=== PATIENT | female | born 1930 | race Caucasian/White ===

== ENCOUNTER 2017-02-21 18:21 | Emergency (ER) | payer MEDICARE, BC ==
[2017-02-21 18:31] VITALS: BP 158/68
--- NOTE | 2017-02-21 18:53 | UC ---
Lower Extremity/Ankle HPI - HPI Summary HPI Summary: Was dx with L 5th toe fx by Dr. Alberta Kong yesterday after x-ray at [facility]. Does not remember injury, but also reports some age-related memory loss. Is having trouble with pain management and walking. Tried truman-taping 4th and 5th toes without relief. Has cane at home that she doesn't normally use. - History of Current Complaint Chief Complaint: UCLowerExtremity Stated Complaint: TOE INJURY Time Seen by Provider: 02/21/17 18:33 Hx Obtained From: Patient ?: No Onset/Duration: Lasting Days Severity Initially: Mild Severity Currently: Moderate Aggravating Factor(s): Standing, Ambulation Alleviating Factor(s): Rest Able to Bear Weight: Yes - Allergies/Home Medications Allergies/Adverse Reactions: Allergies Allergy/AdvReac Type Severity Reaction Status Date / Time Sulfa Drugs Allergy Severe RASH - Verified 02/21/17 18:31 HANDS Amiodarone Allergy Unknown Verified 02/21/17 18:31 Reaction Details Amoxicillin Allergy Unknown Verified 02/21/17 18:31 Reaction Details Clopidogrel Allergy Unknown Verified 02/21/17 18:31 Reaction Details Fluoxetine Allergy Unknown Verified 02/21/17 18:31 Reaction Details Home Medications: Home Medications Nitrofurantoin Monohyd Macro [Macrobid] 100 mg PO DAILY 02/21/17 [History Confirmed 02/21/17] PMH/Surg Hx/FS Hx/Imm Hx Endocrine History Of: Reports: Thyroid Disease - SYNTHROID Denies: Diabetes Cardiovascular History Of: Reports: Atrial Fibrillation Denies: Cardiac Disorders, Hypertension Respiratory History Of: Denies: COPD, Asthma GI/ History Of: Denies: Ulcer Other History Of: Anticoagulant Therapy - Surgical History Surgical History: Yes Surgery Procedure, Year, and Place: TUBAL LIGATION, Gallbladder 2001. TONSILLECTOMY A CHILD - Social History Alcohol Use: None Substance Use Type: None Smoking Status (MU): Former Smoker Type: Cigarettes Have You Smoked in the Last Year: No When Did the Patient Quit Smoking/Using Tobacco: Age 50 - Immunization History Most Recent Influenza Vaccination: 2013 Most Recent Tetanus Shot: [place] U[place] Most Recent Pneumonia Vaccination: 2011 Review of Systems Constitutional: Negative Skin: Negative Eyes: Negative ENT: Negative Respiratory: Negative Cardiovascular: Negative Gastrointestinal: Negative Genitourinary: Negative Motor: Negative Neurovascular: Negative Musculoskeletal: Arthralgia - L 5th toe Neurological: Negative Psychological: Negative All Other Systems Reviewed And Are Negative: Yes Physical Exam Triage Information Reviewed: Yes Appearance: Well-Appearing, No Pain Distress, Well-Nourished Vital Signs: Initial Vital Signs Temp 98.7 F 02/21/17 18:27 Pulse 62 02/21/17 18:27 Resp 16 02/21/17 18:27 BP 158/68 02/21/17 18:27 Pulse Ox 98 02/21/17 18:27 Vital Signs Reviewed: Yes Eye Exam: Normal Eyes: Positive: Conjunctiva Clear ENT Exam: Normal ENT: Positive: Normal ENT inspection, Hearing grossly normal, Pharynx normal, TMs normal Neck exam: Normal Respiratory Exam: Normal Respiratory: Positive: Chest non-tender, Lungs clear, Normal breath sounds, No respiratory distress, No accessory muscle use Musculoskeletal: Positive: ROM Limited @ - tender, pain in L 5th toe Neurological Exam: Normal Psychological Exam: Normal Skin Exam: Normal Lower Extremity Course/Dx - Differential Dx/Diagnosis Provider Diagnoses: L 5th toe fracture. L 5th toe pain Discharge - Discharge Plan Condition: Stable Disposition: HOME Prescriptions: Naproxen Sodium [Naproxen Sodium 275 MG TAB] 275 mg PO BID #14 tab Patient Education Materials: Toe Fracture (ED) Referrals: Alberta Kong MD [Primary Care Provider] - 2 Weeks Additional Instructions: Try using the special shoe and a cane. You can continue to wrap your foot if it helps your pain.
== END 2017-02-21 19:01 | disposition home or self-care (01) ==
LOC: UCEAST 18:21
DX: S92.912A Unspecified fracture of left toe(s), initial encounter for closed fracture (principal); M79.675 Pain in left toe(s); X58.XXXA Exposure to other specified factors, initial encounter; E07.9 Disorder of thyroid, unspecified; R41.3 Other amnesia; Z88.3 Allergy status to other anti-infective agents; Z88.2 Allergy status to sulfonamides; Z87.891 Personal history of nicotine dependence
CPT/HCPCS: 99213; G0463

== ENCOUNTER 2017-04-14 09:32 | Emergency (ER) | payer BC, MEDICARE ==
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
[2017-04-14 12:08] VITALS: BP 130/70
== END 2017-04-14 12:25 | disposition home or self-care (01) ==
LOC: UCEAST 09:32
DX: I48.91 Unspecified atrial fibrillation (principal); Z79.01 Long term (current) use of anticoagulants; R07.89 Other chest pain
CPT/HCPCS: 99212; G0463

== ENCOUNTER 2017-09-15 00:23 | Emergency (ER) | payer MEDICARE, BC ==
[2017-09-15 01:23] LABS: ABS Basophils 0 10^3/ul (0-0.2); ABS Eosinophils 0.1 10^3/ul (0-0.6); ABS Lymphocytes 2.8 10^3/ul (1.0-4.8); ABS Monocytes 0.6 10^3/ul (0-0.8); ABS Neutrophils 3.3 10^3/ul (1.5-7.7); ABS Nucleated RBC 0.01 10^3/ul; Eosinophil % 1.6 % (0-6); Hematocrit 41 % (35-47); Hemoglobin 13.1 g/dl (12.0-16.0); Lymphocyte % 40.9 % (25-47); Mean Corpuscular HGB Conc 32 g/dl (31-36); Mean Corpuscular Hemoglobin 28 pg (27-31); Mean Corpuscular Volume 86 fL (80-97); Mean Platelet Volume 8 um3 (7.4-10.4); Nucleated Red Blood Cells % 0.1; Platelet Count 287 10^3/ul (150-450); Red Blood Count 4.71 10^6/ul (4.0-5.4); Red Cell Distribution Width 14 % (10.5-15); White Blood Count 6.8 10^3/ul (3.5-10.8)
[2017-09-15 01:32] LABS: INR 0.95 (0.77-1.02)
[2017-09-15 01:39] LABS: EGFR Non-African American 55.8 (>60)
[2017-09-15 02:31] VITALS: BP 120/63
--- NOTE | 2017-09-15 02:54 | ED ---
Riley Trinidad Angela, scribed for Jose Manuel Franco on 09/15/17 at 0055 . Palpitations / Dysrhythmia - HPI Summary HPI Summary: This pt is a 86 y/o [facility] for a couple of hours now. She describes her palpitations as increased heart rate. Pt reports she has a history of atrial fibrillation (approx. 20 years) but notes that these palpitations are new for her. She denies chest pain, SOB, abd pain. Per , pt had a cardioversion in [id number]. Pt's PCP is Dr. Kong. She does not see a salesperson parts regularly. Pt denies PMHx of [place]. - History of Current Complaint Chief Complaint: EDDysrhythmPalp Time Seen by Provider: 09/15/17 00:40 Hx Obtained From: Patient Onset/Duration: Lasting Hours, Still Present Timing: Constant Character: Fast Associated Signs & Symptoms: Negative - Allergy/Home Medications Allergies/Adverse Reactions: Allergies Allergy/AdvReac Type Severity Reaction Status Date / Time Sulfa Drugs Allergy Severe RASH - Verified 09/15/17 00:35 HANDS Amiodarone Allergy Unknown Verified 09/15/17 00:35 Reaction Details Amoxicillin Allergy Unknown Verified 09/15/17 00:35 Reaction Details Clopidogrel Allergy Unknown Verified 09/15/17 00:35 Reaction Details Fluoxetine Allergy Unknown Verified 09/15/17 00:35 Reaction Details PMH/Surg Hx/FS Hx/Imm Hx Endocrine/Hematology History: Reports: Hx Anticoagulant Therapy, Hx Thyroid Disease - SYNTHROID Denies: Hx Diabetes, Other Endocrine/Hematological Disorders Cardiovascular History: Reports: Hx Atrial Fibrillation, Other Cardiovascular Problems/Disorders - HX AFIB CARDIOVERSION 2001 Denies: Hx Hypertension Respiratory History: Denies: Hx Asthma, Hx Chronic Obstructive Pulmonary Disease (COPD) GI History: Denies: Hx Ulcer Musculoskeletal History: Reports: Hx Arthritis - BILAL KNEES, Hx Rheumatoid Arthritis Denies: Hx Osteoporosis Sensory History: Reports: Hx Contacts or Glasses - GLASSES Denies: Hx Cataracts - removed, Hx Hearing Aid Opthamlomology History: Reports: Hx Contacts or Glasses - GLASSES Denies: Hx Cataracts - removed Neurological History: Reports: Other Neuro Impairments/Disorders - HX OF NEUROPATHY BILAT HANDS AND FEET - Cancer History Hx Chemotherapy: No - Surgical History Surgery Procedure, Year, and Place: TUBAL LIGATION, Gallbladder 2002. TONSILLECTOMY A CHILD Hx Anesthesia Reactions: No Infectious Disease History: No Infectious Disease History: Denies: Hx Clostridium Difficile, Hx Hepatitis, Hx Human Immunodeficiency Virus (HIV), Hx of Known/Suspected MRSA, Hx Shingles, Hx Tuberculosis, Hx Known/ Suspected VRE, Hx Known/Suspected VRSA, History Other Infectious Disease, Traveled Outside the [place] in Last 30 Days - Family History Known Family History: Positive: Other - Father: prostate CA. Sister: breast CA. Mother: dementia Negative: Cardiac Disease, Hypertension, Diabetes - Social History Alcohol Use: None Substance Use Type: Reports: None Smoking Status (MU): Former Smoker Type: Cigarettes Have You Smoked in the Last Year: No Review of Systems Negative: Fever, Chills Positive: Palpitations. Negative: Chest Pain Negative: Shortness Of Breath Negative: Abdominal Pain All Other Systems Reviewed And Are Negative: Yes Physical Exam - Summary Physical Exam Summary: Appearance: Well appearing, no pain distress Skin: warm, dry, reflects adequate perfusion Head/face: normal Eyes: EOMI, GAVIN ENT: normal Neck: supple, nontender Respiratory: CTA, breath sounds present Cardiovascular: Irregularly irregular heart beat, pulses symmetrical Abdomen: nontender, soft Bowel: present Musculoskeletal: normal, strength/ROM intact Neuro: normal, sensory motor intact, A&Ox3 Triage Information Reviewed: Yes Vital Signs On Initial Exam: Initial Vitals Temp Pulse Resp BP Pulse Ox 96.9 F 92 16 131/70 95 09/15/17 00:25 09/15/17 00:25 09/15/17 00:25 09/15/17 00:25 09/15/17 00:25 Vital Signs Reviewed: Yes Diagnostics - Vital Signs Vital Signs Temp Pulse Resp BP Pulse Ox 09/15/17 00:25 96.9 F 92 16 131/70 95 - Laboratory Result Diagrams: 09/15/17 01:10 09/15/17 01:10 Lab Statement: Any lab studies that have been ordered have been reviewed, and results considered in the medical decision making process. - Radiology Chest XR Xray Interpretation: No Acute Changes - negative chest XR. Radiology Interpretation Completed By: ED Physician - EKG 00:37 Cardiac Rate: NL EKG Rhythm: Atrial Fibrillation - at 81 bpm 02:11 Cardiac Rate: NL EKG Rhythm: Atrial Flutter - /atrial fibrillation at 61 bpm Re-Evaluation - Re-Evaluation First Eval Re-Evaluation Time: 02:19 Comment: Pt declines anticoagulants. She would like to talk to her PCP. Course/Dx - Course Course Of Treatment: Pt is a 86 y/o female, with history of afib, who presents with palpitations for a couple of hours now. Palpitations are characterized as fast heart rate. Bloodwork, EKG, and chest XR were obtained. Chest XR is negative. I discussed with the hospitalist, Dr. Butts, who reports there is no indication to admit the pt and to discharge the pt. I also discussed with the pt , who declines anticoagulants and would like to speak to her PCP. Therfore, pt will be discharged to home. - Diagnoses Provider Diagnoses: Atrial fibrillation, Palpitations - Physician Notifications Discussed Care Of Patient With: Alysha Butts Time Discussed With Above Provider: 01:59 Instructed by Provider To: Other - I discussed pt care with Dr. Butts, hospitalist, and reports there is no indication to admit the pt and recommends discharging the pt. Discharge - Discharge Plan Condition: Stable Disposition: HOME Patient Education Materials: A-fib (Atrial Fibrillation) (ED), Palpitations (ED ) Referrals: Alberta Kong MD [Primary Care Provider] - Additional Instructions: Please follow up with your primary care provider in 3 days. RETURN TO THE ED FOR ANY WORSENING SYMPTOMS in 48 HOURS. The documentation as recorded by the Riley rogers Angela accurately reflects the service I personally performed and the decisions made by me, Jose Manuel Franco.
--- NOTE | 2017-09-15 08:13 | RAD ---
Indication: Atrial fibrillation. Palpitations. Comparison: April 14, 2017 Technique: Upright AP 0115 hours Report: Elevated lung volumes and both diffuse mild prominence of the interstitial markings and patchy rarefaction of the mid to upper lung zone interstitial markings. No focal pulmonary lesion, compelling alveolar consolidation, pleural effusion, pneumothorax. The heart, pulmonary vasculature, and mediastinal contours are unremarkable. IMPRESSION: Stigmata of obstructive lung disease. No acute pulmonary or cardiac process evident.
== END 2017-09-15 02:31 | disposition home or self-care (01) ==
LOC: ED 00:23
DX: R10.9 Unspecified abdominal pain (principal); K63.89 Other specified diseases of intestine
CPT/HCPCS: 36415; 71010; 80053; 83735; 83880; 84443; 84484; 85025; 85610; 85730; 93005; 96374; 96375; 99283

== ENCOUNTER 2017-10-22 17:57 | Emergency (ER) | payer MEDICARE, BC ==
[2017-10-22 19:20] LABS: ABS Basophils 0 10^3/ul (0-0.2); ABS Eosinophils 0 10^3/ul (0-0.6); ABS Lymphocytes 1.3 10^3/ul (1.0-4.8); ABS Monocytes 0.3 10^3/ul (0-0.8); ABS Neutrophils 4.5 10^3/ul (1.5-7.7); ABS Nucleated RBC 0 10^3/ul; Eosinophil % 0.8 % (0-6); Hematocrit 41 % (35-47); Hemoglobin 13.5 g/dl (12.0-16.0); Lymphocyte % 20.4 % (25-47); Mean Corpuscular HGB Conc 33 g/dl (31-36); Mean Corpuscular Hemoglobin 28 pg (27-31); Mean Corpuscular Volume 85 fL (80-97); Mean Platelet Volume 8 um3 (7.4-10.4); Nucleated Red Blood Cells % 0.1; Platelet Count 239 10^3/ul (150-450); Red Blood Count 4.77 10^6/ul (4.0-5.4); Red Cell Distribution Width 14 % (10.5-15); White Blood Count 6.2 10^3/ul (3.5-10.8)
[2017-10-22 19:32] LABS: INR 0.98 (0.77-1.02)
--- NOTE | 2017-10-22 19:42 | RAD ---
HISTORY: Syncope COMPARISONS: September 15, 2017 VIEWS: 1: frontal portable view of the chest at 7:22 PM. The lung apices are partially cutoff FINDINGS: LINES AND TUBES: None. CARDIOMEDIASTINAL SILHOUETTE: The cardiomediastinal silhouette is normal for portable technique. PLEURA: The costophrenic angles are sharp. No pleural abnormalities are noted. LUNG PARENCHYMA: There is hyperinflation. ABDOMEN: The upper abdomen is clear. There is no subphrenic gas. BONES AND SOFT TISSUES: Degenerative changes are noted along the spine. IMPRESSION: LIMITED STUDY. COPD. NO ACTIVE CARDIOPULMONARY DISEASE.
[2017-10-22 20:21] LABS: EGFR Non-African American 60.9 (>60)
[2017-10-22] MEDS ORDERED: Ondansetron ODT TAB* 4 MG PO ONE (21:20)
[2017-10-22 21:42] VITALS: BP 151/59
--- NOTE | 2017-10-23 11:12 | ED ---
Dustin Trinidad Julia, scribed for Luis La MD on 10/22/17 at 1828 . Syncope/Near Syncope - HPI Summary HPI Summary: This patient is a 86 year old F BIBA to [facility] with a chief complaint of sudden weakness and lightheadedness prior to near syncope while walking. Patient states she got up after fall and walked a quarter of a block before calling an ambulance. Patient reports she is very hungry because she has not eaten since breakfast. She states she was hungry when she fell. Patient reports nausea. Patient denies LOC, pain, injury, bowel or urinary symptoms. Patient was given 4mg of Zofran at 17:55 by EMS. Patient was seen by here PCP, Dr. Kong, about a week ago. - History Of Current Complaint Chief Complaint: EDSyncope Time Seen by Provider: 10/22/17 18:11 Hx Obtained From: Patient Onset/Duration: Sudden Onset Timing: Seconds Context: Witnessed Activity At Onset: Other - walking Associated Head Trauma: No Associated Signs And Symptoms: Lightheadedness, Weakness - Allergies/Home Medications Allergies/Adverse Reactions: Allergies Allergy/AdvReac Type Severity Reaction Status Date / Time Sulfa Drugs Allergy Severe RASH - Verified 09/15/17 00:35 HANDS Amiodarone Allergy Unknown Verified 09/15/17 00:35 Reaction Details Amoxicillin Allergy Unknown Verified 09/15/17 00:35 Reaction Details Clopidogrel Allergy Unknown Verified 09/15/17 00:35 Reaction Details Fluoxetine Allergy Unknown Verified 09/15/17 00:35 Reaction Details PMH/Surg Hx/FS Hx/Imm Hx Endocrine/Hematology History: Reports: Hx Anticoagulant Therapy, Hx Thyroid Disease - SYNTHROID Denies: Hx Diabetes, Other Endocrine/Hematological Disorders Cardiovascular History: Reports: Hx Atrial Fibrillation, Other Cardiovascular Problems/Disorders - HX AFIB CARDIOVERSION 2001 Denies: Hx Hypertension Respiratory History: Denies: Hx Asthma, Hx Chronic Obstructive Pulmonary Disease (COPD) GI History: Denies: Hx Ulcer Musculoskeletal History: Reports: Hx Arthritis - BILAL KNEES, Hx Rheumatoid Arthritis Denies: Hx Osteoporosis Sensory History: Reports: Hx Contacts or Glasses - GLASSES Denies: Hx Cataracts - removed, Hx Hearing Aid Opthamlomology History: Reports: Hx Contacts or Glasses - GLASSES Denies: Hx Cataracts - removed Neurological History: Reports: Other Neuro Impairments/Disorders - HX OF NEUROPATHY BILAT HANDS AND FEET - Cancer History Hx Chemotherapy: No - Surgical History Surgery Procedure, Year, and Place: TUBAL LIGATION, Gallbladder 2001. TONSILLECTOMY A CHILD Hx Anesthesia Reactions: No Infectious Disease History: No Infectious Disease History: Reports: Traveled Outside the [place] in Last 30 Days - [place] Denies: Hx Clostridium Difficile, Hx Hepatitis, Hx Human Immunodeficiency Virus (HIV), Hx of Known/Suspected MRSA, Hx Shingles, Hx Tuberculosis, Hx Known/ Suspected VRE, Hx Known/Suspected VRSA, History Other Infectious Disease - Family History Known Family History: Positive: Other - Father: prostate CA. Sister: breast CA. Mother: dementia Negative: Cardiac Disease, Hypertension, Diabetes - Social History Alcohol Use: None Substance Use Type: Reports: None Smoking Status (MU): Former Smoker Type: Cigarettes Have You Smoked in the Last Year: No Review of Systems Constitutional: Negative - pain Gastrointestinal: Negative - bowel changes Positive: Nausea, Other - hunger Positive: no symptoms reported Neurological: Other - lightheaded Positive: Weakness All Other Systems Reviewed And Are Negative: Yes Physical Exam - Summary Physical Exam Summary: Appearance: The patient is well-nourished in no acute distress and in no acute pain. Skin: The skin is warm and dry and skin color reflects adequate perfusion. HEENT: The head is normocephalic and atraumatic. The pupils are equal and reactive. The conjunctivae are clear and without drainage. Nares are patent and without drainage. Mouth reveals moist mucous membranes and the throat is without erythema and exudate. The external ears are intact. The ear canals are patent and without drainage. The tympanic membranes are intact. Neck: the neck is supple with full range of motion and non-tender. There are no carotid bruits. There is no neck vein distension. Respiratory: Chest is non-tender. Lungs are clear to auscultation and breath sounds are symmetrical and equal. Cardiovascular: Heart is regular rate and rhythm. There is no murmur or rub auscultated. There is no peripheral edema and pulses are symmetrical and equal. Abdomen: The abdomen is soft and non-tender. There are normal bowel sounds heard in all four quadrants and there is no organomegaly palpated. Musculoskeletal: There is no back tenderness noted. Extremities are non-tender with full range of motion. There is good capillary refill. There is no peripheral edema or calf tenderness elicited. Neurological: Patient is alert and oriented to person, place and time. The patient has symmetrical motor strength in all four extremities. Cranial nerves are grossly intact. Deep tendon reflexes are symmetrical and equal in all four extremities. Psychiatric: The patient has an appropriate affect and does not exhibit any anxiety or depression. Triage Information Reviewed: Yes Vital Signs On Initial Exam: Initial Vitals Temp Pulse Resp BP Pulse Ox 97.9 F 58 16 142/65 98 10/22/17 18:02 10/22/17 18:02 10/22/17 18:02 10/22/17 18:02 10/22/17 18:02 Vital Signs Reviewed: Yes Diagnostics - Vital Signs Vital Signs Temp Pulse Resp BP Pulse Ox 10/22/17 18:02 97.9 F 58 16 142/65 98 - Laboratory Lab Results: Lab Results 10/22/17 10/22/17 10/22/17 Range/Units 17:04 17:04 17:04 WBC 6.2 (3.5-10.8) 10^3/ul RBC 4.77 (4.0-5.4) 10^6/ul Hgb 13.5 (12.0-16.0) g/dl Hct 41 (35-47) % MCV 85 (80-97) fL MCH 28 (27-31) pg MCHC 33 (31-36) g/dl RDW 14 (10.5-15) % Plt Count 239 (150-450) 10^3/ul MPV 8 (7.4-10.4) um3 Neut % (Auto) 72.4 (38-83) % Lymph % (Auto) 20.4 L (25-47) % [place] % (Auto) 5.6 (1-9) % Eos % (Auto) 0.8 (0-6) % Baso % (Auto) 0.8 (0-2) % Absolute Neuts (auto) 4.5 (1.5-7.7) 10^3/ul Absolute Lymphs (auto) 1.3 (1.0-4.8) 10^3/ul Absolute Monos (auto) 0.3 (0-0.8) 10^3/ul Absolute Eos (auto) 0 (0-0.6) 10^3/ul Absolute Basos (auto) 0 (0-0.2) 10^3/ul Absolute Nucleated RBC 0 10^3/ul Nucleated RBC % 0.1 INR (Anticoag Therapy) 0.98 (0.77-1.02) Sodium 138 (133-145) mmol/L Potassium 4.1 (3.5-5.0) mmol/L Chloride 103 (101-111) mmol/L Carbon Dioxide 26 (22-32) mmol/L Anion Gap 9 (2-11) mmol/L BUN 14 (6-24) mg/dL Creatinine 0.88 (0.51-0.95) mg/dL Est GFR ( Amer) 78.4 (>60) Est GFR (Non-Af Amer) 60.9 (>60) BUN/Creatinine Ratio 15.9 (8-20) Glucose 102 H (70-100) mg/dL Lactic Acid (0.5-2.0) mmol/L Calcium 9.4 (8.6-10.3) mg/dL Magnesium 2.1 (1.9-2.7) mg/dL Total Bilirubin 0.40 (0.2-1.0) mg/dL AST 12 L (13-39) U/L ALT 7 (7-52) U/L Alkaline Phosphatase 48 (34-104) U/L Troponin I 0.00 (<0.04) ng/mL Total Protein 6.2 L (6.4-8.9) g/dL Albumin 3.9 (3.2-5.2) g/dL Globulin 2.3 (2-4) g/dL Albumin/Globulin Ratio 1.7 (1-3) TSH 2.29 (0.34-5.60) mcIU/mL 10/22/17 Range/Units 20:54 WBC (3.5-10.8) 10^3/ul RBC (4.0-5.4) 10^6/ul Hgb (12.0-16.0) g/dl Hct (35-47) % MCV (80-97) fL MCH (27-31) pg MCHC (31-36) g/dl RDW (10.5-15) % Plt Count (150-450) 10^3/ul MPV (7.4-10.4) um3 Neut % (Auto) (38-83) % Lymph % (Auto) (25-47) % [place] % (Auto) (1-9) % Eos % (Auto) (0-6) % Baso % (Auto) (0-2) % Absolute Neuts (auto) (1.5-7.7) 10^3/ul Absolute Lymphs (auto) (1.0-4.8) 10^3/ul Absolute Monos (auto) (0-0.8) 10^3/ul Absolute Eos (auto) (0-0.6) 10^3/ul Absolute Basos (auto) (0-0.2) 10^3/ul Absolute Nucleated RBC 10^3/ul Nucleated RBC % INR (Anticoag Therapy) (0.77-1.02) Sodium (133-145) mmol/L Potassium (3.5-5.0) mmol/L Chloride (101-111) mmol/L Carbon Dioxide (22-32) mmol/L Anion Gap (2-11) mmol/L BUN (6-24) mg/dL Creatinine (0.51-0.95) mg/dL Est GFR ( Amer) (>60) Est GFR (Non-Af Amer) (>60) BUN/Creatinine Ratio (8-20) Glucose (70-100) mg/dL Lactic Acid 1.3 (0.5-2.0) mmol/L Calcium (8.6-10.3) mg/dL Magnesium (1.9-2.7) mg/dL Total Bilirubin (0.2-1.0) mg/dL AST (13-39) U/L ALT (7-52) U/L Alkaline Phosphatase (34-104) U/L Troponin I (<0.04) ng/mL Total Protein (6.4-8.9) g/dL Albumin (3.2-5.2) g/dL Globulin (2-4) g/dL Albumin/Globulin Ratio (1-3) TSH (0.34-5.60) mcIU/mL Result Diagrams: 10/22/17 17:04 10/22/17 17:04 Lab Statement: Any lab studies that have been ordered have been reviewed, and results considered in the medical decision making process. - Radiology CXR Radiology Interpretation Completed By: Radiologist - LIMITED STUDY. COPD. NO ACTIVE CARDIOPULMONARY DISEASE. ED Physician has reviewed this report. - EKG 18:20 Cardiac Rate: NL EKG Rhythm: Sinus Rhythm - at 56 BPM EKG Interpretation: nml EKG 19:56 Cardiac Rate: NL EKG Rhythm: Sinus Rhythm - at 60 BPM EKG Interpretation: nml EKG Course/Dx Course Of Treatment: Ms. Roper has not felt well in about a week. She has been nauseated and not eating well. She saw her PMD who thought she might be getting a virus. This morning she ate breakfast but then didn't eat lunch secondary to nausea. She was planning on eating when she got back from her walk and was quite hungry during the walk. She was almost back when she suddenly felt very weak and collapsed onto the ground without getting hurt. She got up immediately and walked the partial block back to the house. She C/O only about being hungry in the ED. She ate well here and her labs and monitoring were unrevealing as to the source of either her weakness or nausea. I recommended a scriipt for zofran and close F/U with her PMD. - Diagnoses Provider Diagnoses: Nausea, Near syncope Discharge - Discharge Plan Condition: Stable Disposition: HOME Prescriptions: Ondansetron ODT TAB* [Zofran Odt TAB*] 4 mg PO Q6H PRN #20 tab.odt PRN Reason: Nausea/Vomiting Patient Education Materials: Acute Nausea and Vomiting (ED), Near Syncope (ED) Referrals: Alberta Kong MD [Primary Care Provider] - Additional Instructions: Patient should follow up with Dr. Kong this week. Patient is prescribed with Zofran. RETURN TO THE EMERGENCY DEPARTMENT FOR CHANGING OR WORSENING SYMPTOMS. The documentation as recorded by the Dustin rogers Julia accurately reflects the service I personally performed and the decisions made by me, Luis La MD.
== END 2017-10-22 22:07 | disposition home or self-care (01) ==
LOC: ED 17:57
DX: R55 Syncope and collapse (principal); R11.0 Nausea; J44.9 Chronic obstructive pulmonary disease, unspecified; Z88.2 Allergy status to sulfonamides; Z88.8 Allergy status to other drugs, medicaments and biological substances; Z88.3 Allergy status to other anti-infective agents; Z87.891 Personal history of nicotine dependence
CPT/HCPCS: 36415; 71045; 80053; 82150; 83605; 83690; 83735; 84443; 84484; 85025; 85610; 86140; 93005; 99284; A9270-GY

== ENCOUNTER 2018-04-10 10:21 | Emergency (ER) | payer MEDICARE, BC ==
[2018-04-10 10:33] VITALS: BP 123/52
--- NOTE | 2018-04-10 10:46 | UC ---
Truncal Trauma HPI - HPI Summary HPI Summary: 87 yo female presents with right rib pain s/p fall 1 week ago. She tells me that [place] the [place] and stumbled getting into the seat - hit her right ribs on the arm rest. Has had pain in the area since. Has been taking tylenol for pain. Denies fever, chills, coughing, SOB, or chest pain. - History Of Current Complaint Chief Complaint: UCTrauma Stated Complaint: PAIN UNDER RIB AREA Hx Obtained From: Patient Onset/Duration: Sudden Onset Severity Initially: Severe Severity Currently: Severe Pain Intensity: 8 Pain Scale Used: 0-10 Numeric Mechanism Of Injury: Blunt Trauma - Allergies/Home Medications Allergies/Adverse Reactions: Allergies Allergy/AdvReac Type Severity Reaction Status Date / Time amiodarone Allergy unk Verified 04/10/18 10:24 amoxicillin Allergy unk Verified 04/10/18 10:24 clopidogrel Allergy unk Verified 04/10/18 10:24 fluoxetine Allergy unk Verified 04/10/18 10:25 Sulfa (Sulfonamide Allergy Rash Verified 04/10/18 10:24 Antibiotics) PMH/Surg Hx/FS Hx/Imm Hx Endocrine History: Hypothyroidism GI/ History: Gastroesophageal Reflux Psychological History: Anxiety, Depression Other History Of: Anticoagulant Therapy - Surgical History Surgical History: Yes Surgery Procedure, Year, and Place: TUBAL LIGATION. CHOLECYSTECTOMY 2001. TONSILLECTOMY A CHILD - Family History Known Family History: Positive: Other - Father: prostate CA. Sister: breast CA. Mother: dementia Negative: Cardiac Disease, Hypertension, Diabetes - Social History Occupation: Retired Lives: With Family Alcohol Use: None Substance Use Type: None Smoking Status (MU): Former Smoker Type: Cigarettes Have You Smoked in the Last Year: No When Did the Patient Quit Smoking/Using Tobacco: Age 50 - Immunization History Most Recent Influenza Vaccination: 2016 Most Recent Tetanus Shot: not sure Most Recent Pneumonia Vaccination: 2012 Review of Systems Constitutional: Negative Skin: Negative Eyes: Negative ENT: Negative Respiratory: Negative Cardiovascular: Negative Musculoskeletal: Other: - Right rib pain Neurological: Negative Psychological: Negative All Other Systems Reviewed And Are Negative: Yes Physical Exam - Summary Physical Exam Summary: GENERAL: NAD. WDWN. No pain distress. SKIN: No rashes, sores, lesions, or open wounds. NECK: Supple. Nontender. No lymphadenopathy. CHEST: CTAB. No accessory muscle use. Breathing comfortably and in no distress. CV: RRR. Without m/r/g. Pulses intact popliteal, PT, and DP. Brisk cap refill. MSK: TTP over right ribs 8-11. No erythema, open wound, or ecchymosis. NEURO: Alert. Sensations intact and symmetric B/L LEs PSYCH: Age appropriate behavior. Triage Information Reviewed: Yes Vital Signs: Initial Vital Signs Temp 98 F 04/10/18 10:25 Pulse 83 04/10/18 10:25 Resp 17 04/10/18 10:25 BP 123/52 04/10/18 10:25 Pulse Ox 100 04/10/18 10:25 Truncal Trauma Course/Dx - Course Course Of Treatment: XR: Bones: There is a mildly displaced anterolateral right anterior 10th rib fracture. No other rib fractures are seen. Advised to rest and ice the area. Continue with tylenol for pain - will add lidoderm patch - Differential Dx/Diagnosis Provider Diagnoses: right anterior 10th rib fracture Discharge - Sign-Out/Discharge Documenting (check all that apply): Patient Departure - Discharge Plan Condition: Stable Disposition: HOME Prescriptions: Lidocaine PATCH 5%* [Lidoderm 5% Patch*] 1 patch TRANSDERM DAILY #1 box Patient Education Materials: Rib Fracture (ED) Referrals: Alberta Kong MD [Primary Care Provider] - If Needed Additional Instructions: If you develop a fever, shortness of breath, chest pain, new or worsening symptoms - please call your PCP or go to the ED. 1) If your pain worsens or if your develop new symptoms - please call your Primary Doctor. - Billing Disposition and Condition Condition: STABLE Disposition: Home
--- NOTE | 2018-04-10 11:53 | RAD ---
INDICATION: Right rib injury COMPARISON: None TECHNIQUE: Multiple views of the ribs were obtained. FINDINGS: Bones: There is a mildly displaced anterolateral right anterior 10th rib fracture. No other rib fractures are seen. LUNGS: The lungs are clear. There is no pneumothorax. Pleural spaces: There is no evidence of hemothorax. Other: None IMPRESSION: RIGHT 10TH RIB FRACTURE
== END 2018-04-10 12:13 | disposition home or self-care (01) ==
LOC: UCEAST 10:21
DX: S22.31XA Fracture of one rib, right side, initial encounter for closed fracture (principal); Z88.8 Allergy status to other drugs, medicaments and biological substances; Z88.0 Allergy status to penicillin; Z88.2 Allergy status to sulfonamides; Z79.01 Long term (current) use of anticoagulants; W22.8XXA Striking against or struck by other objects, initial encounter; Y92.26 Movie house or cinema as the place of occurrence of the external cause; Z87.891 Personal history of nicotine dependence
CPT/HCPCS: 99212; G0463

== ENCOUNTER 2019-02-27 16:56 | Emergency (ER) | payer MEDICARE, BC ==
[2019-02-27 17:05] VITALS: BP 146/47
--- NOTE | 2019-02-27 17:36 | UC ---
Hand/Wrist HPI - HPI Summary HPI Summary: 88 yo female presents accompanied by with LEFT wrist injury. She tells me that about 30min [employer] she was walking in the wood and tripped on a vine. Fell forward with her left hand outstretched. Has had pain and swelling in her left wrist since that time. She is right handed. Denies numbness or tingling. Nothing OTC for her discomfort. - History Of Current Complaint Chief Complaint: UCUpperExtremity Stated Complaint: wrist INJURY Time Seen by Provider: 02/27/19 17:12 Hx Obtained From: Patient Onset/Duration: Sudden Onset Severity Initially: Severe Severity Currently: Severe Pain Intensity: 10 Pain Scale Used: 0-10 Numeric - Allergies/Home Medications Allergies/Adverse Reactions: Allergies Allergy/AdvReac Type Severity Reaction Status Date / Time amiodarone Allergy unk Verified 02/27/19 17:05 amoxicillin Allergy unk Verified 02/27/19 17:05 clopidogrel Allergy unk Verified 02/27/19 17:05 donepezil Allergy Unknown Verified 02/27/19 17:05 Reaction Details fluoxetine Allergy unk Verified 02/27/19 17:05 Sulfa (Sulfonamide Allergy Rash Verified 02/27/19 17:05 Antibiotics) PMH/Surg Hx/FS Hx/Imm Hx Endocrine History: Hypothyroidism GI/ History: Gastroesophageal Reflux Neurological History: Dementia - Surgical History Surgical History: Yes Surgery Procedure, Year, and Place: TUBAL LIGATION. CHOLECYSTECTOMY 2001. TONSILLECTOMY A CHILD - Family History Known Family History: Positive: Other - Father: prostate CA. Sister: breast CA. Mother: dementia Negative: Cardiac Disease, Hypertension, Diabetes - Social History Occupation: Retired Lives: With Family Alcohol Use: Rare Substance Use Type: None Smoking Status (MU): Former Smoker Type: Cigarettes Have You Smoked in the Last Year: No When Did the Patient Quit Smoking/Using Tobacco: Age 50 - Immunization History Most Recent Influenza Vaccination: 2016 Most Recent Tetanus Shot: not sure Most Recent Pneumonia Vaccination: 2011 Review of Systems All Other Systems Reviewed And Are Negative: Yes Constitutional: Positive: Negative Skin: Positive: Negative Respiratory: Positive: Negative Cardiovascular: Positive: Negative Neurovascular: Positive: Negative Musculoskeletal: Positive: Other: - Left wrist pain Neurological: Positive: Negative Psychological: Positive: Negative Physical Exam - Summary Physical Exam Summary: GENERAL: NAD. WDWN. No pain distress. SKIN: No rashes, sores, lesions, or open wounds. CHEST: No accessory muscle use. Breathing comfortably and in no distress. CV: Pulses intact radial and ulnar. Cap refill <2seconds MSK: LEFT WRIST: Moderate edema and mild ecchymosis about left wrist. TTP about entire wrist. Slight dinner fork deformity. NEURO: Alert. Sensations intact hand and all fingers. PSYCH: Age appropriate behavior. Triage Information Reviewed: Yes Vital Signs: Initial Vital Signs Temp 98.2 F 02/27/19 17:01 Pulse 57 02/27/19 17:01 Resp 16 02/27/19 17:01 BP 146/47 02/27/19 17:01 Pulse Ox 99 02/27/19 17:01 Vital Signs Reviewed: Yes Hand/Wrist Course/Dx - Course Course Of Treatment: XR: IMPRESSION: Fracture of the distal radius and ulnar styloid process with dorsal angulation of the distal fracture fragments. Given pt's underlying dementia, I decided to place her in a cock-up splint until she can see Orthopedics in a few days. I believe she will tolerate the removal splint better than an orthoglass splint that would require her to keep covered when bathing and would likely increase the difficulty of her ADLs. - Differential Dx/Diagnosis Provider Diagnosis: Displaced fracture of left radius Discharge - Sign-Out/Discharge Documenting (check all that apply): Patient Departure All imaging exams completed and their final reports reviewed: Yes - Discharge Plan Condition: Stable Disposition: HOME Patient Education Materials: Wrist Fracture in Adults (ED) Referrals: Alberta Kong MD [Primary Care Provider] - Natasha Singh MD [Medical Doctor] - As Soon As Possible Additional Instructions: If you develop a fever, shortness of breath, chest pain, new or worsening symptoms - please call your PCP or go to the ED immediately. 1) Rest, Ice, and elevate your wrist intermittently throughout the day to reduce pain and swelling 2) Use the cock-up splint as much as possible 3) Please call Orthopedics at the number below to schedule an appointment within the next 2 days for a recheck - Billing Disposition and Condition Condition: STABLE Disposition: Home
== END 2019-02-27 17:55 | disposition home or self-care (01) ==
LOC: UCEAST 16:56
DX: S52.502A Unspecified fracture of the lower end of left radius, initial encounter for closed fracture (principal); W01.0XXA Fall on same level from slipping, tripping and stumbling without subsequent striking against object, initial encounter; Y92.9 Unspecified place or not applicable; Z88.2 Allergy status to sulfonamides; E03.9 Hypothyroidism, unspecified; K21.9 Gastro-esophageal reflux disease without esophagitis; Z87.891 Personal history of nicotine dependence
CPT/HCPCS: 99213; G0463